=== PATIENT | male | born 1945 | race Two or more races ===

== ENCOUNTER 2025-04-02 16:31 | Inpatient (IN) | payer MEDICARE, OTHER ==
[~2025-04-02] VITALS: Ht 165.1 cm; Wt 75.0 kg
[2025-04-02] MEDS ORDERED: INSU100V3 SQ (18:50)
[2025-04-02] MEDS ORDERED: ACET-868 PO (18:50)
[2025-04-02] MEDS ORDERED: ONDA4VIA52 IV (18:50)
[2025-04-02] MEDS ORDERED: ALLA266C2 TP (18:50)
[2025-04-02] MEDS ORDERED: MAGN400O6 PO (18:50)
[2025-04-02] MEDS ORDERED: BLOO-668 IN (18:50)
[2025-04-02] MEDS ORDERED: PANT40TA49 PO (18:50)
[2025-04-02] MEDS ORDERED: VANC1VIA34 IV (18:50)
[2025-04-02] MEDS ORDERED: DEXT50DI5 IV (18:50)
[2025-04-02] MEDS ORDERED: QUET25TA PO (19:10)
[2025-04-02] MEDS ORDERED: LORA-258 PO (19:10)
[2025-04-02] MEDS ORDERED: MAG-5 PO (19:10)
[2025-04-02] MEDS ORDERED: ZINC50TA71 PO (19:10)
[2025-04-02] MEDS ORDERED: ASPI-1169 PO (19:10)
[2025-04-02] MEDS ORDERED: CARV6.25 PO (19:10)
[2025-04-02] MEDS ORDERED: BISA10SU11 RC (19:10)
[2025-04-02] MEDS ORDERED: ISOS20TA8 PO (19:10)
[2025-04-02] MEDS ORDERED: DOCU100T2 PO (19:10)
[2025-04-02] MEDS ORDERED: ESCI10TA PO (19:10)
[2025-04-02] MEDS ORDERED: DICL100G34 TP (19:10)
[2025-04-02] MEDS ORDERED: ATOR40TA PO (19:10)
[2025-04-02] MEDS ORDERED: ASCO100T12 PO (19:10)
[2025-04-02] MEDS ORDERED: TEMA7.5C12 PO (19:10)
[2025-04-02] MEDS ORDERED: SACU1TAB PO (19:10)
[2025-04-02] MEDS ORDERED: EMPA25TA PO (19:10)
[2025-04-02] MEDS ORDERED: GLUC1KIT IM (19:10)
[2025-04-02] MEDS ORDERED: VIBEGRON PO (19:10)
[2025-04-02] MEDS ORDERED: TAMS-12 PO (19:10)
[2025-04-02] MEDS ORDERED: INSU100I26 SQ (19:10)
[2025-04-02] MEDS ORDERED: VIT1TABL46 PO (19:10)
[2025-04-02] MEDS ORDERED: ACET-2030 PO (19:10)
[2025-04-02] MEDS ORDERED: AMIN30LI66 PO (19:10)
[2025-04-02] MEDS ORDERED: MELA3CAP2 PO (19:10)
[2025-04-02 20:00] VITALS: BP 133/86; TEMP 98.2; O2SAT 97
[2025-04-02] MEDS ORDERED: DEXTROSE 50%-WATER 50 ML DISP.SYRIN IV PRN ×2 (20:30)
[2025-04-02] MEDS ORDERED: BISACODYL SUPP (10 MG) 10 MG/SUPP.RECT SUPP.RECT RC PRN (20:30)
[2025-04-02] MEDS ORDERED: ONDANSETRON HCL/PF - ER 4 MG/2 ML VIAL IV PRN (20:30)
[2025-04-02] MEDS ORDERED: DOSING PER PHARMACY-VANCOMYCIN IV XX PRN (20:30)
[2025-04-02] MEDS ORDERED: MAGNESIUM HYDROXIDE 30 ML UDC PO PRN (20:30)
[2025-04-02] MEDS ORDERED: TEMAZEPAM 7.5 MG CAPSULE PO PRN (20:30)
[2025-04-02] MEDS ORDERED: LORAZEPAM 0.5 MG TABLET PO PRN (20:30)
[2025-04-02] MEDS ORDERED: ACETAMINOPHEN 325 MG TABLET PO PRN ×2 (20:30)
[2025-04-02] MEDS ORDERED: IV NS 0.9% 1,000 ML IV PRN (20:30)
[2025-04-02] MEDS ORDERED: MAG HYDROX/AL HYDROX/SIMETH 30 ML UDC PO PRN (20:30)
[2025-04-02] MEDS ORDERED: ONDANSETRON HCL/PF 4 MG/2 ML VIAL IVP PRN (20:30)
[2025-04-02] MEDS: IV NS 0.9% 1,000 ML IV PRN (20:37)
[2025-04-02 20:46] LABS: PLATELET COUNT (AUTO) 310 K/uL (150-450); RED BLOOD CELL COUNT(AUTO) 4.71 MIL/uL (4.5-6.0); RED CELL DISTRIBUTION WIDTH 13.4 % (11.5-15.0); WHITE BLOOD COUNT (AUTO) 6.3 K/uL (4.3-11.0)
[2025-04-02] MEDS: CARVEDILOL 6.25 MG TABLET PO SCH (20:58)
[2025-04-02] MEDS: ISOSORBIDE DINITRATE (20MG) 20 MG TABLET PO SCH (20:58)
[2025-04-02] MEDS: DOCUSATE SODIUM 100 MG CAPSULE PO SCH (20:58)
[2025-04-02] MEDS ORDERED: GLUCAGON,HUMAN RECOMBINANT 1 MG/VIAL VIAL IM PRN (21:00)
[2025-04-02] MEDS ORDERED: BLOOD SUGAR DIAGNOSTIC 1 EACH STRIP IN SCH (22:00)
[2025-04-02] MEDS: DICLOFENAC TOPICAL 100 GM TUBE TP SCH (22:00)
[2025-04-02 22:03] LABS: CALCIUM, SERUM 8.5 mg/dL (8.5-10.1); CREATININE 1.7 mg/dL (0.6-1.3); SODIUM SERUM 140.0 mmol/L (136-145); UREA NITROGEN, BLOOD 27.0 mg/dL (7-18)
[2025-04-02 22:07] LABS: PHOSPHORUS 3.9 mg/dL (2.5-4.9)
[2025-04-02] MEDS: BLOOD SUGAR DIAGNOSTIC 1 EACH STRIP IN SCH (22:10)
[2025-04-02] MEDS: QUETIAPINE FUMARATE 25 MG TABLET PO SCH (22:10)
[2025-04-02] MEDS: ATORVASTATIN 40 MG TABLET PO SCH (22:10)
[2025-04-02] MEDS: INSULIN REGULAR, HUMAN 100 UNIT/ML 3 ML VIAL SQ PRN (22:12)
[2025-04-02] MEDS: EMPAGLIFLOZIN 25 MG TABLET PO SCH (22:37)
[2025-04-02 23:03] LABS: APPEARANCE,URINE TURBID (CLEAR); BLOOD, URINE 3+ Ery/uL (NEGATIVE); LEUKOCYTE ESTERASE ,URINE NEGATIVE (NEGATIVE); NITRITE, URINE POSITIVE (NEGATIVE); UGLUCOSE 2+ mg/dL (NEGATIVE)
[2025-04-02 23:30] LABS: ADD URINE CULTURE YES; SQUAMOUS EPITHELIAL CELL,UR 0-2 /HPF (None Seen)
[2025-04-03] VITALS (10 sets, daily range): BP systolic 121–146; BP diastolic 69–83; TEMP 96.8–98; O2SAT 97–100
[2025-04-03] MEDS: VANCOMYCIN 1 GM /D5W 250 ML PB IV ONE (06:26)
[2025-04-03] MEDS: VANCOMYCIN HCL 1.25 GM in IV D5W 250 ML IV ONE (06:31)
[2025-04-03] MEDS: PANTOPRAZOLE 40 MG TABLET.DR PO SCH (06:31)
[2025-04-03 06:52] LABS: INR 1.13 (0.91-1.10); PLATELET COUNT (AUTO) 267 K/uL (150-450); RED BLOOD CELL COUNT(AUTO) 4.49 MIL/uL (4.5-6.0); RED CELL DISTRIBUTION WIDTH 13.2 % (11.5-15.0); WHITE BLOOD COUNT (AUTO) 5.3 K/uL (4.3-11.0)
[2025-04-03] MEDS ORDERED: PANTOPRAZOLE 40 MG TABLET.DR PO SCH (07:30)
[2025-04-03 08:09] LABS: CALCIUM, SERUM 7.8 mg/dL (8.5-10.1); CREATININE 1.5 mg/dL (0.6-1.3); PHOSPHORUS 4.0 mg/dL (2.5-4.9); SODIUM SERUM 140.0 mmol/L (136-145); UREA NITROGEN, BLOOD 29.0 mg/dL (7-18)
[2025-04-03] MEDS: TAMSULOSIN 0.4 MG CAP.SR.24H PO SCH (08:49)
[2025-04-03] MEDS: ZINC SULFATE 220 MG CAPSULE PO SCH (08:50)
[2025-04-03] MEDS: ASCORBIC ACID 500 MG TABLET PO SCH (08:50)
[2025-04-03] MEDS: VIT B CMPLX 3/FA/VIT C/BIOTIN 1 TAB TABLET PO SCH (08:50)
[2025-04-03] MEDS: ESCITALOPRAM OXALATE (10 MG) 10 MG TABLET PO SCH (08:50)
[2025-04-03] MEDS ORDERED: ASPIRIN 81 MG TAB.CHEW PO SCH (09:00)
[2025-04-03] MEDS: INSULIN GLARGINE, 100 UNIT/ML CARTRIDGE SQ SCH (09:00)
[2025-04-03] MEDS ORDERED: VIBEGRON 75 MG PO SCH (09:00)
[2025-04-03] MEDS ORDERED: IV SET PRIMARY PUMP SET 1 EA INFUS.SET MC ONE ×2 (09:28→12:15)
[2025-04-03] MEDS ORDERED: IV NS 0.9% 1,000 ML ONE (09:28)
[2025-04-03] MEDS ORDERED: IODIXANOL 150 ML IV ONE (09:29)
[2025-04-03] MEDS: PROSOURCE / PROSTAT (PYXIS) 30 ML UDC PO SCH (09:32)
[2025-04-03] MEDS ORDERED: FENTANYL PF 100MCG/2ML AMPUL ONE (10:50)
[2025-04-03] MEDS ORDERED: MIDAZOLAM HCL 2 MG/2ML VIAL ONE (10:51)
[2025-04-03] MEDS ORDERED: LIDOCAINE HCL/MPF 1% 30 ML VIAL IJ ONE (11:00)
[2025-04-03] MEDS ORDERED: IODIXANOL 320MG/ML 50 ML IV ONE (11:17)
[2025-04-03] MEDS ORDERED: HEPARIN SODIUM, PORCINE 1,000 UNIT/ML VIAL ONE (11:30)
[2025-04-03] MEDS ORDERED: HEPARIN SODIUM, PORCINE 5000 UNITS/1 ML VIAL ONE (11:30)
[2025-04-03] MEDS ORDERED: CLOPIDOGREL BISULFATE 300 MG TABLET ONE (12:07)
[2025-04-03] MEDS: CEFAZOLIN 2 GM in IV D5W 100 ML IV ONE (12:31)
[2025-04-03] MEDS ORDERED: IV NS 0.9% 100 ML IV PRN (14:00)
[2025-04-03] MEDS: IV NS 0.9% 1,000 ML BAG IV ONE (14:19)
[2025-04-03] MEDS: IV NS 0.9% 1,000 ML IV SCH (15:07)
[2025-04-03] MEDS: APIXABAN 5 MG TABLET PO SCH (18:55)
[2025-04-04 04:00] VITALS: BP 137/80; TEMP 97.5; O2SAT 97
[2025-04-04] MEDS: VANCOMYCIN 1 GM in IV D5W 250ml IV SCH (05:26)
[2025-04-04 06:45] LABS: PLATELET COUNT (AUTO) 308 K/uL (150-450); RED BLOOD CELL COUNT(AUTO) 4.77 MIL/uL (4.5-6.0); RED CELL DISTRIBUTION WIDTH 12.9 % (11.5-15.0); WHITE BLOOD COUNT (AUTO) 5.5 K/uL (4.3-11.0)
[2025-04-04 07:28] LABS: ASPARTATE AMINOTRANSFERASE 25.0 U/L (15-37); CALCIUM, SERUM 8.0 mg/dL (8.5-10.1); CREATININE 1.5 mg/dL (0.6-1.3); PHOSPHORUS 3.4 mg/dL (2.5-4.9); SODIUM SERUM 139.0 mmol/L (136-145); TOTAL PROTEIN, SERUM 6.3 g/dL (6.4-8.2); UREA NITROGEN, BLOOD 26.0 mg/dL (7-18)
[2025-04-04 07:31] LABS: CREATINE KINASE, TOTAL 39.0 U/L (39-308)
[2025-04-04 08:01] VITALS: BP 125/72; TEMP 97.5; O2SAT 98
[2025-04-04] MEDS: CLOPIDOGREL BISULFATE 75 MG TABLET PO SCH (08:18)
[2025-04-04 12:00] VITALS: BP 125/72; TEMP 97.5; O2SAT 98
[2025-04-04] MEDS ORDERED: DEXTROSE 50%-WATER 50 ML DISP.SYRIN IV PRN (13:00)
[2025-04-04 16:00] VITALS: BP 142/78; TEMP 97.4; O2SAT 98
[2025-04-04] MEDS: BLOOD SUGAR DIAGNOSTIC 1 EACH STRIP VI SCH (17:30)
[2025-04-04 20:00] VITALS: BP 145/74; TEMP 98.1; O2SAT 98
[2025-04-04] MEDS ORDERED: CEFTRIAXONE 1GM BAG (ER ONLY) 50 ML IV ONE (22:11)
[2025-04-04] MEDS: CEFTRIAXONE 1 G in IV D5W 50 ML IV SCH (22:15)
[2025-04-05 04:00] VITALS: BP 130/58; TEMP 98.1; O2SAT 99
[2025-04-05 06:26] LABS: PLATELET COUNT (AUTO) 275 K/uL (150-450); RED BLOOD CELL COUNT(AUTO) 4.60 MIL/uL (4.5-6.0); RED CELL DISTRIBUTION WIDTH 13.3 % (11.5-15.0); WHITE BLOOD COUNT (AUTO) 5.4 K/uL (4.3-11.0)
[2025-04-05 06:38] LABS: CALCIUM, SERUM 8.1 mg/dL (8.5-10.1); CREATININE 1.5 mg/dL (0.6-1.3); PHOSPHORUS 3.1 mg/dL (2.5-4.9); SODIUM SERUM 136.0 mmol/L (136-145); UREA NITROGEN, BLOOD 22.0 mg/dL (7-18)
[2025-04-05 11:06] LABS: PTH, INTACT 47 pg/mL (15-65)
[2025-04-05 12:00] VITALS: BP 128/72; TEMP 98.2; O2SAT 99
[2025-04-05] MEDS: INSULIN REGULAR, HUMAN 100 UNIT/ML 3 ML VIAL SQ PRN (14:14)
[2025-04-05 20:00] VITALS: BP 129/72; TEMP 98.9; O2SAT 99
[2025-04-06 04:00] VITALS: BP 132/73; TEMP 98.2; O2SAT 98
[2025-04-06 06:35] LABS: CALCIUM, SERUM 8.2 mg/dL (8.5-10.1); CREATININE 1.5 mg/dL (0.6-1.3); SODIUM SERUM 137.0 mmol/L (136-145); UREA NITROGEN, BLOOD 22.0 mg/dL (7-18)
[2025-04-06] MEDS: PANTOPRAZOLE 40 MG TABLET.DR PO SCH (07:43)
[2025-04-06] MEDS: Z GUARD REMEDY 4 OZ OINT TP PRN (09:40)
[2025-04-06 10:00] VITALS: BP 142/82; TEMP 97.6; O2SAT 97
[2025-04-06] MEDS: INSULIN GLARGINE, 100 UNIT/ML CARTRIDGE SQ SCH (10:14)
[2025-04-06 10:17] LABS: PLATELET COUNT (AUTO) 307 K/uL (150-450); RED BLOOD CELL COUNT(AUTO) 4.40 MIL/uL (4.5-6.0); RED CELL DISTRIBUTION WIDTH 12.9 % (11.5-15.0); WHITE BLOOD COUNT (AUTO) 5.3 K/uL (4.3-11.0)
[2025-04-06 10:39] LABS: PHOSPHORUS 3.7 mg/dL (2.5-4.9)
[2025-04-06] MEDS: *INSULIN REGULAR(HUMULIN R)HUM 100 UNIT/ML VIAL SQ PRN (12:37)
[2025-04-06 16:00] VITALS: BP 149/85; TEMP 97.5; O2SAT 100
[2025-04-06 20:00] VITALS: BP 127/61; TEMP 97.9; O2SAT 97
[2025-04-07 04:00] VITALS: BP 135/77; TEMP 98.2; O2SAT 97
[2025-04-07] MEDS: VANCOMYCIN 750 MG in IV D5W 250 ML IV SCH (05:31)
[2025-04-07 08:00] VITALS: BP 119/71; TEMP 98.2; O2SAT 96
[2025-04-07 08:46] LABS: PLATELET COUNT (AUTO) 305 K/uL (150-450); RED BLOOD CELL COUNT(AUTO) 4.16 MIL/uL (4.5-6.0); RED CELL DISTRIBUTION WIDTH 12.9 % (11.5-15.0); WHITE BLOOD COUNT (AUTO) 6.1 K/uL (4.3-11.0)
[2025-04-07 08:49] LABS: CALCIUM, SERUM 7.9 mg/dL (8.5-10.1); CREATININE 1.6 mg/dL (0.6-1.3); PHOSPHORUS 3.8 mg/dL (2.5-4.9); SODIUM SERUM 139.0 mmol/L (136-145); UREA NITROGEN, BLOOD 22.0 mg/dL (7-18)
[2025-04-07 16:00] VITALS: BP 135/77; TEMP 98.2; O2SAT 97
[2025-04-07 20:00] VITALS: BP 138/75; TEMP 98.4; O2SAT 98
[2025-04-08 04:00] VITALS: BP 124/68; TEMP 98.6; O2SAT 97
[2025-04-08 07:12] LABS: CALCIUM, SERUM 8.6 mg/dL (8.5-10.1); CREATININE 1.6 mg/dL (0.6-1.3); SODIUM SERUM 139.0 mmol/L (136-145); UREA NITROGEN, BLOOD 23.0 mg/dL (7-18)
[2025-04-08 07:45] LABS: INR 1.2 (0.91-1.10)
[2025-04-08 12:08] VITALS: BP 149/85; TEMP 97.5; O2SAT 100
[2025-04-08 20:00] VITALS: BP 134/76; TEMP 99.1; O2SAT 98
[2025-04-09 04:33] VITALS: BP 110/66; TEMP 98.9; O2SAT 98
[2025-04-09 07:12] LABS: PLATELET COUNT (AUTO) 320 K/uL (150-450); RED BLOOD CELL COUNT(AUTO) 4.32 MIL/uL (4.5-6.0); RED CELL DISTRIBUTION WIDTH 13.0 % (11.5-15.0); WHITE BLOOD COUNT (AUTO) 5.0 K/uL (4.3-11.0)
[2025-04-09 07:59] LABS: ASPARTATE AMINOTRANSFERASE 21.0 U/L (15-37); CALCIUM, SERUM 8.3 mg/dL (8.5-10.1); CREATININE 1.5 mg/dL (0.6-1.3); PHOSPHORUS 4.3 mg/dL (2.5-4.9); SODIUM SERUM 141.0 mmol/L (136-145); TOTAL PROTEIN, SERUM 6.1 g/dL (6.4-8.2); UREA NITROGEN, BLOOD 27.0 mg/dL (7-18)
[2025-04-09] MEDS ORDERED: LIDOCAINE HCL/MPF 1% 30 ML VIAL IJ ONE (09:52)
[2025-04-09] MEDS ORDERED: BUPIVACAINE 0.5 % PF 150 MG/30 ML VIAL ONE ×2 (09:52→10:20)
[2025-04-09] MEDS ORDERED: MIDAZOLAM HCL 2 MG/2ML VIAL ONE (10:17)
[2025-04-09] MEDS ORDERED: FENTANYL PF 100MCG/2ML AMPUL ONE (10:17)
[2025-04-09] MEDS ORDERED: FAMOTIDINE/PF INJ 20 MG/2 ML VIAL IV ONE (10:17)
[2025-04-09] MEDS ORDERED: LIDOCAINE 1% INJ 50 ML MDV IJ ONE (10:21)
[2025-04-09] MEDS ORDERED: PROPOFOL 40 ML IV ONE (10:23)
[2025-04-09 12:00] VITALS: BP 103/69; TEMP 98.9; O2SAT 100
[2025-04-09] MEDS ORDERED: FLUMAZENIL 0.5 MG VIAL ONE (12:02)
[2025-04-09] MEDS: FLUMAZENIL 0.5 MG VIAL IV PRN (12:09)
[2025-04-09 20:00] VITALS: BP 112/66; TEMP 97.5; O2SAT 97
[2025-04-09] MEDS: ACETAMINOPHEN ES 500 MG TABLET PO PRN (21:45)
[2025-04-10 04:00] VITALS: BP 147/83; TEMP 97.8; O2SAT 100
[2025-04-10] MEDS ORDERED: VANCOMYCIN 500 MG VIAL ONE (04:40)
[2025-04-10 06:51] LABS: PLATELET COUNT (AUTO) 304 K/uL (150-450); RED BLOOD CELL COUNT(AUTO) 4.42 MIL/uL (4.5-6.0); RED CELL DISTRIBUTION WIDTH 13.4 % (11.5-15.0); WHITE BLOOD COUNT (AUTO) 5.2 K/uL (4.3-11.0)
[2025-04-10 07:02] LABS: ASPARTATE AMINOTRANSFERASE 26.0 U/L (15-37); CALCIUM, SERUM 8.1 mg/dL (8.5-10.1); CREATININE 1.5 mg/dL (0.6-1.3); PHOSPHORUS 4.1 mg/dL (2.5-4.9); SODIUM SERUM 140.0 mmol/L (136-145); TOTAL PROTEIN, SERUM 6.2 g/dL (6.4-8.2); UREA NITROGEN, BLOOD 30.0 mg/dL (7-18)
[2025-04-10 07:07] LABS: *SPE A/G RATIO 0.7 (0.7-1.7); *SPE ALBUMIN 2.2 g/dL (2.9-4.4); *SPE ALPHA-1-GLOBULIN 0.3 g/dL (0.0-0.4); *SPE ALPHA-2-GLOBULIN 0.8 g/dL (0.4-1.0); *SPE BETA GLOBULIN 1.1 g/dL (0.7-1.3); *SPE GLOBULIN, TOTAL 3.2 g/dL (2.2-3.9); *SPE M-SPIKE 0.1 g/dL (Not Observed); *SPE PROTEIN TOTAL 5.4 g/dL (6.0-8.5); *SPEGAMMA GLOBULIN 1.0 g/dL (0.4-1.8)
[2025-04-10 08:00] VITALS: BP 138/79; TEMP 97.6; O2SAT 100
[2025-04-10 08:25] VITALS: BP 138/79
== END 2025-04-10 14:10 | DRG 271 ==
LOC: MED 18:14 → MEDSG1 18:36 → ICU 04-03 13:06 → MEDSG1 04-03 21:13
PROVIDERS: ADMIT Nurse Practitioner Family
PROC: 047K3DZ Dilation of Right Femoral Artery with Intraluminal Device, Percutaneous Approach (ICD-10-PCS; principal; 2025-04-03)
PROC: 04CK3ZZ Extirpation of Matter from Right Femoral Artery, Percutaneous Approach (ICD-10-PCS; 2025-04-03)
PROC: 047M3ZZ Dilation of Right Popliteal Artery, Percutaneous Approach (ICD-10-PCS; 2025-04-03)
PROC: B410YZZ Fluoroscopy of Abdominal Aorta using Other Contrast (ICD-10-PCS; 2025-04-03)
PROC: B41GYZZ Fluoroscopy of Left Lower Extremity Arteries using Other Contrast (ICD-10-PCS; 2025-04-03)
PROC: 0Y6M0ZF Detachment at Right Foot, Partial 5th Ray, Open Approach (ICD-10-PCS; 2025-04-09)
DX: E11.52 Type 2 diabetes mellitus with diabetic peripheral angiopathy with gangrene (principal); D68.59 Other primary thrombophilia; I70.261 Atherosclerosis of native arteries of extremities with gangrene, right leg; I13.0 Hypertensive heart and chronic kidney disease with heart failure and stage 1 through stage 4 chronic kidney disease, or unspecified chronic kidney disease; L03.115 Cellulitis of right lower limb; M86.171 Other acute osteomyelitis, right ankle and foot; I50.32 Chronic diastolic (congestive) heart failure; L03.031 Cellulitis of right toe; E11.69 Type 2 diabetes mellitus with other specified complication; N32.81 Overactive bladder; E11.40 Type 2 diabetes mellitus with diabetic neuropathy, unspecified; N18.9 Chronic kidney disease, unspecified; E11.42 Type 2 diabetes mellitus with diabetic polyneuropathy; E11.22 Type 2 diabetes mellitus with diabetic chronic kidney disease; E11.65 Type 2 diabetes mellitus with hyperglycemia; E11.621 Type 2 diabetes mellitus with foot ulcer; L97.519 Non-pressure chronic ulcer of other part of right foot with unspecified severity; F03.90 Unspecified dementia, unspecified severity, without behavioral disturbance, psychotic disturbance, mood disturbance, and anxiety; N40.0 Benign prostatic hyperplasia without lower urinary tract symptoms; L97.514 Non-pressure chronic ulcer of other part of right foot with necrosis of bone; E78.5 Hyperlipidemia, unspecified; Z89.411 Acquired absence of right great toe; Z95.0 Presence of cardiac pacemaker; Z79.84 Long term (current) use of oral hypoglycemic drugs; Z79.4 Long term (current) use of insulin; Z79.82 Long term (current) use of aspirin; Z79.899 Other long term (current) drug therapy; D64.9 Anemia, unspecified; M89.8X9 Other specified disorders of bone, unspecified site; N18.30 Chronic kidney disease, stage 3 unspecified
CPT/HCPCS: 36415; 71045-TC; 73718-TC; 75625; 76770-TC; 80048-TC; 80053-TC; 80202-TC; 81001; 82550-TC; 82962-TC; 83735-TC; 83970; 84100-TC; 84155; 84165; 85025-TC; 85347; 85610-TC; 85730-TC; 86850-TC; 87040-TC; 87081-TC; 87086-TC; 93307-TC; A4223; A6223; A6253; A6403; G0378; J0690; J0696; J1308; J1644; J1815; J2250; J2704; J3010; J3373; J3374; J3490; J7030; J7040; J7060; Q9967